=== PATIENT | male | born 1965 | race Caucasian/White ===

== ENCOUNTER 2017-11-19 08:33 | Emergency (ER) | payer OTHER ==
[~2017-11-19] VITALS: Ht 182.9 cm; Wt 105.7 kg
[2017-11-19] MEDS ORDERED: BUPR100 PO (08:51)
[2017-11-19] MEDS ORDERED: Voltaren100 GM TOP (09:28)
[2017-11-19] MEDS ORDERED: Norco 5-325 Ta1 EACH PO (09:28)
[2017-11-19] MEDS ORDERED: IBUP800 PO (09:28)
[2017-11-19] MEDS ORDERED: Cyclobenzaprine5 MG PO (09:28)
== END 2017-11-19 10:05 | disposition home or self-care (01) ==
LOC: ER 08:33
DX: M54.5 Low back pain (principal); Z79.899 Other long term (current) drug therapy
CPT/HCPCS: 96372; 99283; J1885